=== PATIENT | female | born 1960 | race Caucasian/White ===

== ENCOUNTER 2017-08-28 19:30 | Emergency (ER) | payer OTHER, BC ==
[~2017-08-28] VITALS: Ht 165.1 cm; Wt 89.4 kg
[2017-08-28] MEDS ORDERED: LEVOXYL0.125 MG NG (19:52)
[2017-08-28] MEDS ORDERED: ASPIRIN ADULT L81 M3 PO (19:53)
--- OUTSIDE RECORDS SUMMARY | 2017-08-28 20:12 | External Medical Summary Rpt | CCD ---
Author Author , REILLY GROVER Address Unknown Phone [email or web address] Purpose Continuity of Care Document - through 2016 Problems Code Diagnosis DOS Provider Status K52.9 Noninfectiv e gastroenter itis and colitis, unspecified K81.0 Acute cholecystit is R10.31 Right lower quadrant pain
--- OUTSIDE RECORDS SUMMARY | 2017-08-28 20:12 | External Medical Summary Rpt | CCD ---
Author Author , REILLY GROVER Address Unknown Phone [email or web address] Purpose Continuity of Care Document - through 2016 Problems Code Diagnosis DOS Provider Status K52.9 Noninfectiv e gastroenter itis and colitis, unspecified K81.0 Acute cholecystit is R10.31 Right lower quadrant pain
--- OUTSIDE RECORDS SUMMARY | 2017-08-28 20:12 | External Medical Summary Rpt | CCD ---
Author Author , REILLY GROVER Address Unknown Phone [email or web address] Name Relationship Address Phone ROSA, Next Of Kin Unknown Unavailable ROSIE Immunization Name Date Rout CVX Reac Dose Comm Prov Is Faci e tion ent ider Refu lity Give sed n Infl 09-2 999 Hist PPMA No PPMA uenz 7-20 ori YSVI YSVI a 17 al LLE LLE Quad Info rmat W/Pr ion es - Sour ce Unsp ecif ied Tdap 06-2 115 999 Hist H112 No H112 , 2-20 oric Adso 10 al rbed Info rmat ion - Sour ce Unsp ecif ied Td 03-0 Intr 9 999 Hist H112 No H112 (christy 5-19 amus oric lt), 97 cula al r Info adso rmat rbed ion - Sour ce Unsp ecif ied
--- OUTSIDE RECORDS SUMMARY | 2017-08-28 20:12 | External Medical Summary Rpt | CCD ---
Author Author , REILLY GROVER Address Unknown Phone [email or web address] Name Relationship Address Phone ROSA, Next [...]
--- OUTSIDE RECORDS SUMMARY | 2017-08-28 20:12 | External Medical Summary Rpt | CCD ---
Author Author [employer] Organization [employer] Address Unknown Phone Unavailable Purpose Continuity of Care Document - through 2016
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
[2017-08-28 23:06] VITALS: BP 120/78
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
== END 2017-08-28 23:07 | disposition home or self-care (01) ==
LOC: ER 19:30
DX: S20.219A Contusion of unspecified front wall of thorax, initial encounter (principal); V43.52XA Car driver injured in collision with other type car in traffic accident, initial encounter; Y92.414 Local residential or business street as the place of occurrence of the external cause